=== PATIENT | male | born 1965 | race Caucasian/White ===

== ENCOUNTER 2020-06-26 12:14 | Emergency (ER) | payer BC, SELFPAY ==
--- NOTE | ~2020-06-26 | XR_ITS ---
EXAMINATION: XR abdomen/kub 1V DATE: 06/26/2020 14:38 INDICATION: Mid abdominal pain. TECHNIQUE: A supine view of the abdomen on 2 radiographs was obtained. COMPARISON: None. FINDINGS: Mild left hydronephrosis with abrupt transition at the proximal left ureter likely related to the pre viously noted 8 mm obstructing stone which is of similar density and difficult to distinguish from th e adjacent excreted contrast. No right-sided hydroureteronephrosis with contrast opacifying the proxi mal to mid right ureter. Couple smelling calcifications consistent with old granulomatous disease. Ri ght pelvic phlebolith and prostatomegaly cases project through the contrast opacified bladder. Normal bowel gas pattern. 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 IMPRESSION: 1. Mild left hydronephrosis with persistent obstruction at the proximal left ureter corresponding to the location of the previously noted 8 mm stone which is difficult to distinguish from the excreted c ontrast. Reviewed, dictated and finalized at location H. [facility] IMPRESSION: 1. Mild left hydronephrosis with persistent obstruction at the proximal left ur eter corresponding to the location of the previously noted 8 mm stone which is difficult to distinguish from the excreted contrast.
--- NOTE | ~2020-06-26 | CT_ITS ---
EXAMINATION: CT abdomen pelvis w con EXAM DATE: 06/26/2020 14:19 INDICATION: lower abdominal pain . TECHNIQUE: Spiral CT of the abdomen and pelvis was performed following intravenous injection of 100 m L Omnipaque 350. Axial, coronal and sagittal images were reviewed. The dose-length product (DLP) fo r this examination was 323.52 mGy-cm. The exposure was tailored according to patient size (auto mA e xposure control), and iterative reconstruction (ASIR) was used as additional dose reduction technique . There is no prior study for comparison. FINDINGS: The liver, spleen, adrenal glands and pancreas are unremarkable. Gallbladder is unremarkab le. No biliary obstruction. There is a 8 mm stone in the left ureteropelvic junction with mild delay ed nephrogram, mild hydronephrosis. Additional smaller inferior calyceal stones and stones within a c alyceal diverticulum at the superior pole. The prostate is unremarkable. The bladder is unremarkable . There is no retroperitoneal or pelvic lymphadenopathy. The appendix is not positively visualized. There is no pericecal inflammatory change to suggest appe ndicitis. There is small sliding gastroesophageal hiatal hernia. There is expected amount of colon ic stool. No free intraperitoneal gas. The heart is normal in size. There are no pericardial or pleural effusions. The lung bases are unremarkable. There are no osteoblastic or osteolytic lesions identified. IMPRESSION: 1. Left UPJ 8 mm stone, mild obstructive nephropathy. 2. Left nephrolithiasis, inferior calyceal and superior calyceal diverticular stones. 3. Small hiatal hernia. Reviewed, dictated and finalized at location A. K HANDLER
[2020-06-26 12:17] VITALS: BP 125/73; PULSE 82; RESP 19; TEMP 35.7; O2SAT 99
[2020-06-26 12:33] LABS: Basophils Percent Auto 0.4 % (0.2-1.2); Eosinophils Absolute Auto 0.2 K/mm3 (0-0.3); Eosinophils Percent Auto 2.7 % (0-4.4); Hematocrit 40.6 % (42.0-52.0); Hemoglobin 13.3 g/dL (14.0-18.0); Immature Granulocyte Absolute 0.01 K/mm3 (0.00-0.031); Immature Granulocyte Percent A 0.1 % (0-0.5); Lymphocytes Absolute Auto 2.94 K/mm3 (0.9-3.2); Lymphocytes Percent Auto 39.7 % (18.3-44.2); Mean Corpuscular HGB Conc 32.8 g/dl (32-36); Mean Corpuscular Hemoglobin 31.4 pg (26-34); Mean Corpuscular Volume 95.8 fl (80-100); Mean Platelet Volume 10.7 fl (7.4-10.4); Monocytes Absolute Auto 0.6 K/mm3 (0.1-0.6); Monocytes Percent Auto 8.1 % (2.6-8.5); Neutrophils Absolute Auto 3.6 K/mm3 (1.3-6.7); Platelet Count Result 217 k/mm3 (150-375); Red Blood Count 4.24 M/mm3 (4.6-6.20); Red Cell Distribution Width 12.9 % (11.5-14.5); White Blood Count 7.4 K/mm3 (4.5-10.0)
[2020-06-26 12:48] LABS: Alanine Aminotransferase 17 U/L (4-50); Albumin Level 4.7 g/dL (3.5-5.1); Alkaline Phosphatase 68 U/L (38-126); Anion Gap 12 mmol/L (8-16); Aspartate Amino Transferase 27 U/L (17-59); Bilirubin,Total 0.6 mg/dL (0.2-1.3); Blood Urea Nitrogen 14 mg/dL (9-20); Calcium 9.3 mg/dL (8.4-10.2); Carbon Dioxide 26 mmol/L (22-30); Chloride 105 mmol/L (98-107); Estimated CRCL calculation 85 ml/min; Estimated Glomerular Filt Rate > 60; Glucose 128 mg/dL (75-110); Lipase 122 U/L (23-300); Potassium 3.4 mmol/L (3.4-5.0); Sodium 143 mmol/L (137-145)
--- NOTE | 2020-06-26 13:08 | ED.ABDPAIN ---
HPI - Abdominal Pain General Chief Complaint: Abdominal Pain Stated Complaint: abdominal pain Time Seen by Provider: 06/26/20 13:02 Source: patient Mode of arrival: ambulatory Limitations: no limitations History of Present Illness HPI narrative: This patient is a 55 year old male with history of left lower abdominal pain . His pain started suddenly 1 hour ago. It has been severe and it is radiating to his left lower back . He reports associated nausea but denies vomiting. He reports he had a normal bowel movement after the onset of pain. He has not taken anything for pain. He denies history of kidney stones. He denies testicular pain. Related Data Home Medications Medication Instructions Recorded Confirmed allopurinol 06/26/20 Allergies Allergy/AdvReac Type Severity Reaction Status Date / Time No Known Drug Allergies Allergy Verified 06/26/20 13:17 Review of Systems Review of Systems: All systems reviewed & are unremarkable except as noted in HPI and below Constitutional: Constitutional: Denies chills and Denies fever(s) Respiratory: Respiratory: Denies cough and Denies dyspnea Gastrointestinal: Gastrointestinal: Reports abdominal pain, Denies diarrhea, Reports nausea and Denies vomiting Genitourinary: Genitourinary: Denies hematuria and Denies urinary frequency Musculoskeletal: Musculoskeletal: Denies as per HPI and Reports back pain PMFSH Past Medical History Medical History (Updated 06/26/20 @ 17:06 by Tiana Renner MD) Patient denies medical problems Surgical History Surgical History (Updated 06/26/20 @ 13:09 by Tiana Renner MD) H/O skin graft Social History Social History (Updated 06/26/20 @ 13:09 by Tiana Renner MD) Smoking status: Never smoker Gender identity (if verbalized by the patient): Male Exam Const: General: alert Orientation/consciousness: patient oriented x3 Other: screaming in pain Eyes: EOM: EOMs intact bilaterally Chest: Chest palpation & inspection: normal inspection of the chest Resp: Effort & Inspection: normal respiratory effort, no retractions, not tachypneic and no use of accessory muscles Auscultation: clear to auscultation bilaterally Cardio: Rate: regular rate Rhythm: regular rhythm Heart sounds: no murmurs GI: GI Palp: Yes Soft to palpation, Yes Tenderness to palpation present (GI) (LLQ), No Guarding due to palpation present (GI) and No Rigid due to palpation Auscultation: normal bowel sounds Skin: General skin exam: normal color Rashes: no rashes Neuro: General: patient oriented x3 and moves all extremities Course Reevaluation(s) Reevaluation #1: Patient denies any pain currently. I have discussed CT results and I am awaiting a call back from urologist. Date: 06/26/20 Time: 15:35 Consultations Consultation #1: I have discussed with Dr. Garcia patient CT scan showing 8 mm stone. PAtient has not fever or leukocytosis. He states patient can be discharged home and he can possible see him on Sunday. Date: 06/26/20 Time: 15:40 Vital Signs Vital signs: Vital Signs Temperature 96.3 F L 06/26/20 12:17 Pulse Rate 82 06/26/20 12:17 Respiratory Rate 19 06/26/20 12:17 Blood Pressure 125/73 06/26/20 12:17 Pulse Oximetry 99 06/26/20 12:17 Temperature 97.4 F L 06/26/20 14:43 Pulse Rate 58 L 06/26/20 17:18 Respiratory Rate 15 06/26/20 17:18 Blood Pressure 133/87 06/26/20 17:18 Pulse Oximetry 99 06/26/20 17:18 MDM - Abdominal Pain Lab Data Attestation: I reviewed the patient's lab results. Result diagrams: 06/26/20 12:23 06/26/20 12:23 Labs: Lab Results 06/26/20 06/26/20 06/26/20 Range/Units 12:23 12:23 16:21 WBC 7.4 (4.5-10.0) K/mm3 RBC 4.24 L (4.6-6.20) M/mm3 Hgb 13.3 L (14.0-18.0) g/dL Hct 40.6 L (42.0-52.0) % MCV 95.8 (80-100) fl MCH 31.4 (26-34) pg MCHC 32.8 (32-36) g/dl RDW 12.9 (11.5-14.5) % Plt
[2020-06-26] MEDS: ONDANSETRON INJ 4 MG/2 ML VIAL IV PUSH (13:17)
[2020-06-26] MEDS: HYDROmorphone HCL INJ (*CRX) 1 MG/ML SYR IV PUSH ×2 (13:17→13:53)
[2020-06-26] MEDS: LACTATED RINGERS 1,000 ML 999 ML IV CONT (13:17)
[2020-06-26 13:54] VITALS: BP 153/85; PULSE 52; RESP 14; O2SAT 100
[2020-06-26 14:43] VITALS: BP 174/83; PULSE 49; RESP 14; TEMP 36.3; O2SAT 99
[2020-06-26 15:40] VITALS: BP 150/86; PULSE 52; RESP 14; O2SAT 100
[2020-06-26] MEDS: TAMSULOSIN HCL 0.4 MG CAPSULE PO (15:48)
[2020-06-26 16:33] LABS: Add Urine Microscopic? YES; Appearance Urine Clear (Clear); Bilirubin Urine Negative (Negative); Blood Urine 3+ (Negative); Color Urine Straw (Yellow); Glucose Urine UA 1+ mg/dL (Negative); Ketones Urine Trace mg/dL (Negative); Leukocyte Esterase Ur Negative LEU/UL (Negative); Mucus Urine Rare /lpf; Nitrate Urine Negative (Negative); Protein Urine 1+ mg/dL (Negative); RBC Urine >75 /hpf (0-2); Squamous Epithelial Cell Urine Rare /hpf (Few); Urobilinogen Urine Negative mg/dL (<2.0)
[2020-06-26 16:45] LABS: Specific Grav Ur 1.053 (1.001-1.035)
[2020-06-26 17:18] VITALS: BP 133/87; PULSE 58; RESP 15; O2SAT 99
== END 2020-06-26 17:19 | disposition home or self-care (01) ==
PROVIDERS: Emergency Medicine; Emergency Provider General Practice; PCP Family Medicine
DX: N13.2 Hydronephrosis with renal and ureteral calculous obstruction (principal); K44.9 Diaphragmatic hernia without obstruction or gangrene
CPT/HCPCS: 36415; 74018; 74177; 80053; 81001; 83690; 85025; 96361; 96374; 96375; 96376; 99284; A9270; J1170; J2405; J7120; Q9967